=== PATIENT | male | born 1965 | race Caucasian/White ===

== ENCOUNTER 2017-04-16 17:52 | Emergency (ER) | payer MEDICARE ==
[~2017-04-16 17:52] MED LIST: ASPIRIN EC81 MG PO; BACLOFEN10 MG PO; BROVANA15 MCG/2 M IH; ETODOLAC400 MG PO; FOLIC ACID1 MG PO; IPRAT-ALBUT 0.5-3 ML NEB; LEVAQUIN750 MG PO; METOPROLOL TART25 MG PO; NEURONTIN300 MG PO; NICOTINE TRANSD21 MG TOP; ONE DAILY1 EACH PO; PREDNISONE10 MG PO; PRILOSEC OTC20 MG PO; PULMICORT0.5 MG/2 M NEB
== END 2017-04-16 20:54 | disposition home or self-care (01) ==
LOC: ER 17:52
DX: N50.811 Right testicular pain (principal); F10.129 Alcohol abuse with intoxication, unspecified; F17.200 Nicotine dependence, unspecified, uncomplicated; Z88.0 Allergy status to penicillin; Z79.899 Other long term (current) drug therapy
CPT/HCPCS: 96372; J1885